=== PATIENT | male | born 1965 | race Caucasian/White ===

== ENCOUNTER 2022-09-23 07:07 | Emergency (ER) | payer OTHER ==
[2022-09-23 07:45] LABS: ESTIMATED GFR 99 mL/min (>60); TROPONIN I HIGH SENSITIVITY 6.2 pg/mL (<=60.3)
== END 2022-09-23 08:30 | disposition home or self-care (01) ==
LOC: JP.ED 07:07
DX: R07.89 Other chest pain (principal); F41.9 Anxiety disorder, unspecified; Z88.0 Allergy status to penicillin; Z79.899 Other long term (current) drug therapy
CPT/HCPCS: 36415; 71046; 71046-26; 80053; 84484; 85025; 85379; 93005; 93010; 99282; 99285